=== PATIENT | female | born 1985 | race Caucasian/White ===

== ENCOUNTER 2017-02-20 07:19 | Day surgery (SDC) | payer MEDICAID ==
[2017-02-20] VITALS (12 sets, daily range): BP systolic 82–125; BP diastolic 48–76; PULSE 48–98; RESP 11–24; Ht 160 cm; Wt 53.5 kg
[~2017-02-20] VITALS: Ht 160 cm; Wt 53.5 kg
[~2017-02-20 07:19] MED LIST: ACETAMINOPHEN 1000 MG/100 ML IVPB ONE; CEFAZOLIN 1 GM INJ ONE; LIDOCAINE 2% (SDV) 5 ML INJ ONE; PROPOFOL 200 MG INJ ONE
[2017-02-20] MEDS ORDERED: FENTAnyl 50 MCG/ML VIAL ONE (08:05)
[2017-02-20 08:07] LABS: BASOPHIL # 0.1 10^3/ul (0.0-0.1); BASOPHILS % 0.8 % (0.0-2.0); EOSINOPHILS # 0.1 10^3/ul (0.0-0.5); EOSINOPHILS % 1.5 % (0.0-7.0); HEMATOCRIT 35.8 % (37.0-47.0); HEMOGLOBIN 11.8 g/dl (12.0-16.0); LYMPHOCYTES # 2.2 10^3/ul (0.8-2.9); LYMPHOCYTES % 33.1 % (15.0-51.0); MEAN CORPUSCULAR HEMOGLOBIN 29.3 pg (29.0-33.0); MEAN CORPUSCULAR VOLUME 88.8 fl (82.0-101.0); MEAN PLATELET VOLUME 11.1 fl (7.4-10.4); MONOCYTE # 0.5 10^3/ul (0.3-0.9); MONOCYTES % 7.1 % (0.0-11.0); NEUTROPHILS % 57.2 % (39.0-77.0); PLATELET COUNT 279 10^3/UL (140-415); RED BLOOD COUNT 4.03 10^6/ul (4.20-5.40); RED CELL DISTRIBUTION WIDTH 12.3 % (11.5-14.5); WHITE BLOOD COUNT 6.7 10^3/ul (4.8-10.8)
[2017-02-20 08:23] LABS: INR 0.91; PROTIME 12.3 Sec (12.2-14.2)
[2017-02-20 08:24] LABS: PARTIAL THROMBOPLASTIN TIME 28.1 Sec (25.0-35.0)
[2017-02-20] MEDS ORDERED: MIDAZOLAM 1 MG/ML 2 ML INJ ONE (08:30)
[2017-02-20] MEDS ORDERED: CEFAZOLIN 1 GM INJ ONE (08:38)
[2017-02-20 08:40] LABS: ALBUMIN 5.1 g/dl (3.3-4.9); ALBUMIN/GLOBULIN RATIO 1.37; BILIRUBIN,INDIRECT 0.4 mg/dl (0-1.1); BILIRUBIN,TOTAL 0.4 mg/dl (0.2-1.3); TOTAL PROTEIN 8.8 g/dl (6.1-8.1)
[2017-02-20 08:49] LABS: CALCIUM 9.6 mg/dl (8.4-10.2); CREATININE 0.65 mg/dl (0.44-1.00); POTASSIUM 3.4 mmol/L (3.5-5.1)
[2017-02-20] MEDS ORDERED: ONDANSETRON 4 MG INJ IV PRN (09:00)
[2017-02-20] MEDS ORDERED: EPHEDrine SULFATE 50 MG/5 ML SYG IV PRN (09:00)
[2017-02-20] MEDS ORDERED: KETOROLAC 30 MG INJ IV PRN (09:00)
[2017-02-20] MEDS ORDERED: MEPERIDINE 25 MG INJ IV PRN (09:00)
[2017-02-20] MEDS ORDERED: FENTAnyl 50 MCG/ML VIAL IV PRN ×3 (09:00)
[2017-02-20] MEDS ORDERED: hydrALAzine 20 MG INJ IV PRN (09:00)
[2017-02-20] MEDS ORDERED: DIPHENHYDRAMINE 50 MG INJ IV PRN (09:00)
[2017-02-20] MEDS ORDERED: OXYCODONE/ACETAMINOPHEN (5/325) TAB PO PRN ×2 (09:00)
[2017-02-20] MEDS ORDERED: HYDROmorphONE (0.2 MG/ML) 10ML SYG IV PRN ×3 (09:00)
[2017-02-20] MEDS ORDERED: LABETALOL HCL 20MG INJ IV PRN (09:00)
--- NOTE | 2017-02-20 09:03 | OPR ---
Date/Time of Note Date/Time of Note DATE: 02/20/17 TIME: 09:02 Operative Report Preoperative Diagnosis Giant fibroadenoma left breast Postoperative Diagnosis Same Operation/Procedure Performed Left partial mastectomy Surgeon: BRYANT AIKEN MD library services assistant: ROEL MCDOWELL MD Anesthesia Type: general Estimated Blood Loss: 10 - 50 ml's Specimens Left breast specimen Grafts/Implants: none Complications: no BRYANT AIKEN MD Feb 20, 2017 09:03
[2017-02-20] MEDS ORDERED: HYDROCODONE/APAP (7.5/325) TAB PO PRN (09:30)
--- NOTE | 2017-02-20 09:42 | OPR ---
DATE OF OPERATION: 02/20/2017 PREOPERATIVE DIAGNOSIS: Giant fibroadenoma, left breast. POSTOPERATIVE DIAGNOSIS: Giant fibroadenoma, left breast. OPERATION PERFORMED: Left partial mastectomy. ANESTHESIA: General. ANESTHESIOLOGIST: Dr. Coates. SURGEON: Dr. Vital. ASSISTANT FOREMAN: Dr. Bolanos. INDICATIONS FOR PROCEDURE: Patient is a 31-year-old female who presented with an enlarging mass adjacent to her nipple-areolar complex, spanning the space between approximately the 7 and 12 o'clock location. Core biopsy revealed findings consistent with fibroadenoma. The patient requested excision. She consented and was scheduled for surgery. OPERATIVE PROCEDURE: The patient was brought to the operating theater, placed under general anesthesia. The left breast was prepped and draped in usual sterile fashion. A periareolar incision was made from the 7 o'clock position to the 12 o'clock position. Subcutaneous tissue was dissected with cautery. Deep within the breast parenchyma, a well-circumscribed mass was identified. It was enucleated with a gloved finger, removed and sent for permanent pathologic analysis. Bleeding was then controlled with cautery. The wound was irrigated. The skin incision was then reapproximated with a deep dermal layer for 4-0 Vicryl sutures in interrupted fashion, followed by final skin approximation with 5-0 PDS suture in subcuticular fashion. Benzoin and Steri-Strips were then applied. The patient tolerated procedure well. ESTIMATED BLOOD LOSS: 20 mL. COMPLICATIONS: There were no complications. DISPOSITION: The patient was transferred in stable condition to the recovery room. Dictated By: Cedric Vital MD /antonio/mikie /Document#: [id number]
== END 2017-02-20 11:50 | disposition home or self-care (01) ==
LOC: SDS 07:19
PROVIDERS: ATTEND Surgery Surgical Oncology
DX: D24.2 Benign neoplasm of left breast (principal)
CPT/HCPCS: 19301; 80053; 84703; 85025; 85610; 85730; 88307; J0131; J0690; J2250; J3010; Z7512; Z7610